=== PATIENT | female | born 1990 | race African-American/Black ===

== ENCOUNTER 2017-07-22 14:51 | Inpatient (IN) ==
[2017-07-22] MEDS ORDERED: MEPERIDINE 50 MG/1 ML VIAL IM PRN (15:09)
[2017-07-22] MEDS ORDERED: BUTORPHANOL 1 MG/ML VIAL IV PRN (15:09)
[2017-07-22] MEDS ORDERED: ONDANSETRON 4 MG/2 ML VIAL IV PRN (15:09)
[2017-07-22] MEDS ORDERED: DINOPROSTONE VAG GEL 10 MG SYRINGE VAG ONE (15:12)
[2017-07-22] MEDS: LACTATED RINGERS 1,000 ML IV SCH ×2 (15:29→20:44)
[2017-07-22 15:31] LABS: Basophils % 0.4 % (0.0-0.8); Eosinophils % 0.5 % (0.00-10.9); Hematocrit 38.9 VOL% (35.7-47.0); Hemoglobin 13.3 GM/DL (12.0-16.0); Immature Granulocytes % 0.8 %; Immature Granulocytes Absolute 0.06 #; Lymphocytes # 1.5 10*3/uL (1.4-4.0); Lymphocytes % 18.8 % (21.3-54.2); Mean Corpuscular HGB Conc 34.2 GM/DL (32-36); Mean Corpuscular Hemoglobin 33 PG (27-34); Mean Platelet Volume 9.9 FL (9.6-12.0); Monocytes # 0.6 10*3/uL (0.11-0.8); Monocytes % 7.3 % (1.7-12.7); Neutrophils # 5.6 10*3/uL (1.4-7.4); Neutrophils % 72.2 % (38.7-73.9); Platelet Count 190 T/CUMM (130-400); Red Blood Count 4.05 MC/CUMM (3.8-5.5); White Blood Count 7.7 T/CUMM (4-12)
[2017-07-22 16:10] LABS: Bilirubin,Total 0.4 MG/DL (0.2-1.0); Calcium 8.5 MG/DL (8.5-10.1); Osmolality,Calculated 274.5 MOS/KG (273-304); Potassium 3.8 MMOL/L (3.5-5.1); Uric Acid 3.5 MG/DL (2.6-6.0)
[2017-07-22] MEDS ORDERED: INSULIN ASPART PROTAMINE/ASPART 70/30 100 UNIT/ML SUBCUT SCH (17:30)
[2017-07-22] MEDS: Novolog 100 units/ml SUBCUT SCH (20:48)
[2017-07-22] MEDS ORDERED: INSULIN GLARGINE 100 UNIT/ML SUBCUT SCH (21:00)
[2017-07-22] MEDS ORDERED: TERBUTALINE 1 MG/1 ML VIAL SUBCUT ONE (22:02)
[2017-07-23] MEDS ORDERED: OXYTOCIN/LR 20 UNIT/1,000 ML BAG IV SCH (02:00)
[2017-07-23] MEDS: LACTATED RINGERS 1,000 ML IV SCH ×2 (02:06→16:20)
[2017-07-23] MEDS ORDERED: Novolog 100 units/ml SUBCUT SCH (07:30)
[2017-07-23] MEDS ORDERED: INSULIN ASPART PROTAMINE/ASPART 70/30 100 UNIT/ML SUBCUT SCH (07:30)
[2017-07-23] MEDS: Novolog 100 units/ml SUBCUT SCH ×2 (07:53→12:18)
[2017-07-23] MEDS ORDERED: predniSONE 10 MG TABLET PO SCH ×3 (09:00)
[2017-07-23] MEDS ORDERED: predniSONE 1 MG TABLET PO SCH (09:00)
[2017-07-23] MEDS ORDERED: FOLIC ACID 1 MG TABLET PO SCH (09:00)
[2017-07-23] MEDS ORDERED: azaTHIOprine 50 MG TABLET PO SCH (09:00)
[2017-07-23] MEDS: predniSONE 5 MG TABLET PO SCH (09:07)
[2017-07-23] MEDS ORDERED: CITRIC ACID/SODIUM CITRATE 30 ML UDCUP PO ONE (16:15)
[2017-07-23] MEDS ORDERED: ceFAZolin 2,000 MG in PREMIX 1 EACH IV ONE (16:15)
[2017-07-23] MEDS ORDERED: FAMOTIDINE 20 MG/2 ML VIAL IV ONE (16:16)
[2017-07-23] MEDS ORDERED: OXYTOCIN 10 UNIT/ML VIAL IM ONE (16:16)
[2017-07-23] MEDS ORDERED: OXYTOCIN/LR 30 UNIT/1,000 ML BAG IV ONE (16:16)
[2017-07-23] MEDS ORDERED: OXYTOCIN 10 UNIT/ML VIAL ONE (16:19)
[2017-07-23] MEDS ORDERED: LACTATED RINGERS 1,000 ML IV SCH ×2 (16:30→20:10)
[2017-07-23 17:51] LABS: Cord Arterial Blood HCO3 26.4 MMOL/L
[2017-07-23] MEDS ORDERED: MORPHINE 10 MG/10 ML VIAL ONE (17:51)
[2017-07-23] MEDS ORDERED: KETAMINE 500 MG/10 ML VIAL ONE (17:51)
[2017-07-23] MEDS ORDERED: PHENYLEPHRINE 1 MG/10 ML SYRINGE IV ONE (17:52)
[2017-07-23 17:53] LABS: Cord Venous Blood HCO3 24.6 MMOL/L; Cord Venous Blood PCO2 41.3 MMHG; Cord Venous Blood PO2 31.8 MMHG
[2017-07-23 17:55] LABS: Apearance,Urine CLEAR (Clear); Bilirubin,Urine Negative (Negative); Blood, Urine Negative (Negative); Glucose,Urine (UA) 50 mg/dL (Negative); Ketones,Urine Negative (Negative); Mucus,Urine Occasional /LPF (Occasional); Nitrite,Urine Negative (Negative); Protein,Urine Negative; RBC,Urine 1 /HPF (0-4); Squamous Epithelial Cell,Urine Occasional /HPF (0-10); Urine Color Yellow (Yellow); WBC,Urine 5 /HPF (0-6)
[2017-07-23 18:50] LABS: Alanine Aminotransferase 18 U/L (13-56); Albumin 2.4 G/DL (3.4-5.0); Alkaline Phosphatase 131 U/L (45-117); Aspartate Amino Transferase 17 U/L (0-37); Bilirubin,Total < 0.39 MG/DL (0.2-1.0); Blood Urea Nitrogen 5 MG/DL (7-18); Calcium 8.3 MG/DL (8.5-10.1); Glucose 97 MG/DL (74-106); Osmolality,Calculated 275.4 MOS/KG (273-304); Sodium 140 MMOL/L (136-145); Total Protein 5.1 G/DL (6.4-8.3)
[2017-07-23] MEDS ORDERED: IBUPROFEN 800 MG TABLET PO ONE (19:25)
[2017-07-23] MEDS ORDERED: DEXTROSE 50% 25 GM/50 ML VIAL IV PRN (20:10)
[2017-07-23] MEDS ORDERED: OXYTOCIN/LR 20 UNIT/1,000 ML BAG IV ONE (20:10)
[2017-07-23] MEDS ORDERED: ONDANSETRON 4 MG/2 ML VIAL IV PRN (20:10)
[2017-07-23] MEDS ORDERED: ACETAMINOPHEN 325 MG TABLET PO PRN (20:10)
[2017-07-23] MEDS ORDERED: SIMETHICONE CHEW 80 MG TABLET PO PRN (20:10)
[2017-07-23] MEDS ORDERED: RHO(D) IMMUNE GLOBULIN 300 MCG SYRINGE IM ONE (20:10)
[2017-07-23] MEDS ORDERED: GLUCAGON 1 MG VIAL IM PRN (20:10)
[2017-07-23] MEDS: diphenhydrAMINE 50 MG/1 ML VIAL IV PRN (20:55)
[2017-07-23] MEDS: DOCUSATE SODIUM 100 MG CAPSULE PO SCH (23:23)
[2017-07-24] MEDS: diphenhydrAMINE 50 MG/1 ML VIAL IV PRN (02:44)
[2017-07-24 07:01] LABS: Basophils % 0.2 % (0.0-0.8); Hematocrit 32.8 VOL% (35.7-47.0); Hemoglobin 11.5 GM/DL (12.0-16.0); Immature Granulocytes Absolute 0.16 #; Lymphocytes # 0.7 10*3/uL (1.4-4.0); Mean Corpuscular HGB Conc 35.1 GM/DL (32-36); Mean Corpuscular Hemoglobin 33 PG (27-34); Mean Corpuscular Volume 95.1 FL (87-102); Mean Platelet Volume 10.1 FL (9.6-12.0); Monocytes # 0.5 10*3/uL (0.11-0.8); Monocytes % 2.8 % (1.7-12.7); Neutrophils # 15.1 10*3/uL (1.4-7.4); Platelet Count 183 T/CUMM (130-400); Red Blood Count 3.45 MC/CUMM (3.8-5.5); Red Cell Distribution Width 13.8 % (9.3-17.3); White Blood Count 16.4 T/CUMM (4-12)
[2017-07-24 07:23] LABS: Band Neutrophils 2 % (0-10); Hypochromasia 1+; Lymphocytes 1 % (20-55); Ovalocytes Slight; Platelet Estimate Normal; Segmented Neutrophils 95 % (50-85); Total Cells Counted 100
[2017-07-24 07:34] LABS: Albumin 2.4 G/DL (3.4-5.0); Bilirubin,Total 1.4 MG/DL (0.2-1.0); Calcium 8.4 MG/DL (8.5-10.1); Osmolality,Calculated 273.7 MOS/KG (273-304); Potassium 4.6 MMOL/L (3.5-5.1); Total Protein 5.2 G/DL (6.4-8.3)
[2017-07-24] MEDS ORDERED: INFLUENZA VIRUS VACCINE 0.5 ML SYRINGE IM ONE (09:00)
[2017-07-24] MEDS: DOCUSATE SODIUM 100 MG CAPSULE PO SCH ×2 (09:25→20:43)
[2017-07-24] MEDS: MAGNESIUM HYDROXIDE SUSP 30 ML UDCUP PO PRN ×2 (09:25→20:43)
[2017-07-24] MEDS: MULTIVITAMIN (PRENATAL) TABLET PO SCH (09:25)
[2017-07-24] MEDS: predniSONE 5 MG TABLET PO SCH (09:25)
[2017-07-24] MEDS ORDERED: NON-FORMULARY MEDICATION SUBCUT SCH (11:30)
[2017-07-24] MEDS: NOVOLOG INSULIN SUBCUT SCH ×2 (11:38→17:09)
[2017-07-24] MEDS: azaTHIOprine 50 MG TABLET PO SCH (12:58)
[2017-07-24] MEDS: FOLIC ACID 1 MG TABLET PO SCH (12:58)
[2017-07-24] MEDS ORDERED: diphenhydrAMINE CAP 50 MG CAPSULE PO PRN (12:59)
[2017-07-24] MEDS ORDERED: diphenhydrAMINE CAP 50 MG CAPSULE ONE (12:59)
[2017-07-24] MEDS: IBUPROFEN 800 MG TABLET PO PRN (18:29)
[2017-07-24] MEDS ORDERED: INSULIN GLARGINE 100 UNIT/ML SUBCUT SCH (21:00)
[2017-07-25] MEDS: IBUPROFEN 800 MG TABLET PO PRN (06:05)
[2017-07-25 07:39] VITALS: BP 129/80
[2017-07-25] MEDS: NOVOLOG INSULIN SUBCUT SCH ×2 (09:15→13:44)
[2017-07-25] MEDS: DOCUSATE SODIUM 100 MG CAPSULE PO SCH (09:15)
[2017-07-25] MEDS: FOLIC ACID 1 MG TABLET PO SCH (09:15)
[2017-07-25] MEDS: azaTHIOprine 50 MG TABLET PO SCH (09:15)
[2017-07-25] MEDS: MULTIVITAMIN (PRENATAL) TABLET PO SCH (09:15)
[2017-07-25] MEDS: predniSONE 5 MG TABLET PO SCH (09:16)
[2017-07-25] MEDS ORDERED: INFLUENZA VIRUS VACCINE 0.5 ML SYRINGE IM ONE (11:37)
== END 2017-07-25 13:15 | disposition home or self-care (01) | DRG 540 ==
LOC: N.LDOUT 14:51 → N.LD 14:53 → N.OB 07-23 20:13
PROVIDERS: ADMIT Obstetrics & Gynecology; ATTEND Obstetrics & Gynecology
PROC: LDCSECT (ICD-10-PCS; 2017-07-23 17:00)